=== PATIENT | male | born 1960 | race Two or more races ===

== ENCOUNTER 2016-11-08 07:57 | Emergency (ER) | payer OTHER ==
[2016-11-08 08:21] VITALS: BP 149/83
[2016-11-08] MEDS ORDERED: Ketorolac INJ* 60 MG/2 ML VIAL IM ONE (08:41)
--- NOTE | 2016-11-08 09:09 | RAD ---
HISTORY: Anterior right shoulder pain COMPARISONS: None VIEWS: 3, Frontal internal rotation, external rotation, and outlet views of the right shoulder FINDINGS: BONE DENSITY: Normal. BONES: There is no displaced fracture. JOINTS: There is no arthropathy. ALIGNMENT: There is no dislocation. SOFT TISSUES: Unremarkable. OTHER FINDINGS: None. IMPRESSION: NO ACUTE OSSEOUS INJURY. IF SYMPTOMS PERSIST, RECOMMEND REPEAT IMAGING.
[2016-11-08] MEDS ORDERED: HYDROcodone/ACETAMIN 5-325 MG* 1 TAB PO ONE (09:44)
--- NOTE | 2016-11-08 10:04 | UC ---
Eleanor Sales Rebecca, scribed for Jeanne Patten MD on 11/08/16 at 0839 . Upper Extremity HPI - HPI Summary HPI Summary: Pt is a 56 y/o M accompanied by his who presents to [facility] c/o R shoulder pain with decreased ROM. Pain began suddenly 5 days ago and has been constant since onset, significantly worsening yesterday at 1000. Pain is discrete to the R shoulder without radiation. Pain is currently severe, ranked 9/10 and characterized as sharp. Sx aggravated by movement, alleviated by nothing and unchanged by pain patch, deep breaths, Ibuprofen, Advil (yesterday at 1600) and Hydrocodone (yesterday at 2200). Additionally c/o R hand swelling. Denies any CP. Denies any recent trauma. PMHx CAD, HTN, MA. STEMI 5 years ago while playing basketball with sx of CP. Evaluated by Dr. Massey 10 days ago. - History of Current Complaint Chief Complaint: UCUpperExtremity Stated Complaint: SHOULDER PAIN Time Seen by Provider: 11/08/16 08:24 Hx Obtained From: Patient Onset/Duration: Sudden Onset, Lasting Days - 5 days, Worse Since - yesterday Severity Initially: Mild Severity Currently: Severe Pain Intensity: 9 Pain Scale Used: 0-10 Numeric Location Of Pain: Is Discrete @ - R shoulder Character: Sharp Aggravating Factor(s): Movement Alleviating Factor(s): Nothing Associated Signs And Symptoms: Positive: Swelling - R hand Related History: Immobility - Risk Factors Non-Orthopedic Risk Factor: Negative DVT Risk Factors: Negative Septic Arthritis Risk Factor: Negative - Allergies/Home Medications Allergies/Adverse Reactions: Allergies Allergy/AdvReac Type Severity Reaction Status Date / Time No Known Allergies Allergy Verified 11/08/16 08:11 Home Medications: Home Medications Ibuprofen TAB* [Advil TAB*] 2 odt PO BID PRN 11/08/16 [History Confirmed ] PMH/Surg Hx/FS Hx/Imm Hx Endocrine History Of: Denies: Diabetes, Thyroid Disease Cardiovascular History Of: Reports: Cardiac Disorders - 2 STENTS IN HEART; HEART ATTACK 2010, Hypertension - on medication, Myocardial Infarction Denies: Pacemaker/ICD Other History Of: Anticoagulant Therapy - Surgical History Surgical History: Yes Surgery Procedure, Year, and Place: CARDIAC STENT - 2010- [facility] - CONDTIONAL FOR 1.5T ONLY. csp;fusion/back surgeryx3; neck - Family History Known Family History: Positive: Cardiac Disease - diffuse - Social History Occupation: Employed Full-time Alcohol Use: None Substance Use Type: None Smoking Status (MU): Former Smoker Amount Used/How Often: 3 cigs daily - Immunization History Most Recent Influenza Vaccination: none Most Recent Tetanus Shot: no recall Most Recent Pneumonia Vaccination: none Review of Systems Constitutional: Negative Respiratory: Negative Cardiovascular: Chest Pain - Negative Musculoskeletal: Decreased ROM, Other: - R shoulder pain, R hand swelling All Other Systems Reviewed And Are Negative: Yes Physical Exam Triage Information Reviewed: Yes Appearance: Well-Appearing, Well-Nourished, Pain Distress - moderate Vital Signs: Initial Vital Signs Temp 98.7 F 11/08/16 08:14 Pulse 68 11/08/16 08:14 Resp 18 11/08/16 08:14 BP 149/83 11/08/16 08:14 Pulse Ox 98 11/08/16 08:14 Vital Signs Reviewed: Yes Eyes: Positive: Conjunctiva Clear ENT: Positive: Normal ENT inspection Neck: Positive: Supple, Nontender, No Lymphadenopathy Respiratory: Positive: Lungs clear, Normal breath sounds, No respiratory distress Cardiovascular: Positive: RRR, No Murmur, Pulses Normal, Brisk Capillary Refill Musculoskeletal: Positive: ROM Limited @ - Can only abduct the R shoulder about 30 degrees with serious pain, Edema @ - right hand Neurological: Positive: Alert, Muscle Tone Normal Psychological Exam: Normal Skin Exam: Normal Diagnostics - Radiology Shoulder XR Xray Interpretation: No Acute Changes - NO ACUTE OSSEOUS INJURY. IF SYMPTOMS PERSIST, RECOMMEND REPEAT IMAGING. Radiology Interpretation Completed By: Radiologist - EKG Cardiac Rate: NL - 61 bpm Cardiac Rhythm: Sinus: Normal - Normal Av-IV conduction time, AXis is 2, Q- waves in V1 and V2, NO STEMI ST Segment: Non-Specific - Non-specific ST-T-wave changes; Compared with 01/06/15 : minor ST wave changes in aVL, V5 and V6. Re-Evaluation - Re-Evaluation First Eval Re-Evaluation Time: 09:42 Change: Improved Comment: Pt reports sx have slightly improved to 6/10 from Toradol. Discussed XR results with pt. Counseled pt on how to use a sling and that pt should continue to use his shoulder. Discussed the option of a Lidocaine patch, which pt refused. Pt agrees to proper hydrocodone use to treat the pain. Discussed referral to orthopedist with pt and his . understands verbal directions on treating pain prophylactically to prevent pain ballooning again. Agrees to physical therapy prescription and work release. Upper Extremity Course/Dx - Course Course Of Treatment: With shoulder pain in a pt with heart disease, did do an EKG, but EKG is essentially unchanged and pt has no chest pain. Also pt's MA had chest pain and left shoulder pain, not right, and pt just saw Dr. Massey and all was well. Also pt's right shoulder has point tenderness and decreased ROM, all consistent with primary shoulder pain, not referred pain, occult angina. Pt is speaking Khmer to me, is translating some words in Farsi to pt. Declined an sign language interpreter. Shoulder XR reveals negative results. - Differential Dx/Diagnosis Differential Diagnosis/HQI/PQRI: Strain, Sprain, Other - calcific tendinitis Provider Diagnoses: adhesive capsulitis Discharge - Discharge Plan Condition: Stable Disposition: HOME Prescriptions: HYDROcodone/ACETAMIN 5-325 MG* [[place] 5-325 TAB*] 2 tab PO Q4H PRN #20 tab MDD 8 PRN Reason: Pain Patient Education Materials: Adhesive Capsulitis (ED) Forms: *Work Release Referrals: Claudia Gaffney MD [Primary Care Provider] - The documentation as recorded by the Eleanor lutz Rebecca accurately reflects the service I personally performed and the decisions made by me, Jeanne Patten MD.
== END 2016-11-08 10:04 | disposition home or self-care (01) ==
LOC: UCEAST 07:57
DX: M75.01 Adhesive capsulitis of right shoulder (principal); I25.2 Old myocardial infarction; I10 Essential (primary) hypertension; Z79.01 Long term (current) use of anticoagulants; Z72.0 Tobacco use
CPT/HCPCS: 93005; 96372; 99213; G0463; J1885

== ENCOUNTER 2017-09-07 14:47 | Emergency (ER) | payer OTHER ==
[2017-09-07] MEDS ORDERED: Ibuprofen TAB* 600 MG PO ONE (15:08)
[2017-09-07] MEDS ORDERED: Acetaminophen TAB* 325 MG PO ONE (15:09)
[2017-09-07] MEDS ORDERED: Ondansetron ODT TAB* 4 MG PO ONE (15:10)
--- NOTE | 2017-09-07 16:50 | UC ---
Nubia Sales Nilda, scribed for Pierce Shea MD on 09/07/17 at 1510 . Respiratory Complaint HPI - HPI Summary HPI Summary: This patient is a 57 year old M presenting to [facility] accompanied by with a chief complaint of sudden onset constant fever since yesterday afternoon. Patient reports chills (shaking), nausea, body aches, cough, rhinorrhea, nasal congestion, chest congestion, headache, and eye pain. Patient denies vomiting. Pain is rated 8/10 in severity. 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 PMHx includes HLD, CAD, and HTN. Medications include metroprolol, NTG, Norvasc, and Hydrocodone. - History of Current Complaint Stated Complaint: COUGH Time Seen by Provider: 09/07/17 15:01 Hx Obtained From: Patient Onset/Duration: Sudden Onset, Lasting Days - 1 day, Still Present Timing: Constant Severity Currently: Severe Pain Intensity: 8 Pain Scale Used: 0-10 Numeric Character: Cough: Nonproductive Aggravating Factors: Nothing Alleviating Factors: OTC Meds - ibuprofen Associated Signs And Symptoms: Positive: Fever, Chills, Nasal Congestion, Sinus Discomfort - Allergies/Home Medications Allergies/Adverse Reactions: Allergies Allergy/AdvReac Type Severity Reaction Status Date / Time No Known Allergies Allergy Verified 09/07/17 15:04 PMH/Surg Hx/FS Hx/Imm Hx Cardiovascular History: Hypertension, Other Other Cardiovascular History: hyperlypidemia Other History Of: Anticoagulant Therapy - Surgical History Surgical History: Yes Surgery Procedure, Year, and Place: CARDIAC STENT - 2010- [facility] - CONDTIONAL FOR 1.5T ONLY. csp;fusion/back surgeryx3; neck - Family History Known Family History: Positive: Cardiac Disease - diffuse Negative: Diabetes - Social History Lives: With Family Alcohol Use: None Substance Use Type: None Smoking Status (MU): Light Every Day Tobacco Smoker Type: Cigarettes Amount Used/How Often: 2-3 sig/day When Did the Patient Quit Smoking/Using Tobacco: 2013 - Immunization History Most Recent Influenza Vaccination: none Most Recent Tetanus Shot: no recall Most Recent Pneumonia Vaccination: none Review of Systems Constitutional: Fever, Chills - shaking Eyes: Other - eye pain ENT: Nasal Discharge, Sinus Congestion Respiratory: Cough Cardiovascular: Other - chest congestion Gastrointestinal: Nausea, Other - negative vomiting Musculoskeletal: Other: - body aches Neurological: Headache All Other Systems Reviewed And Are Negative: Yes Physical Exam Triage Information Reviewed: Yes Vital Signs: Initial Vital Signs Temp 100.6 F 09/07/17 15:01 Pulse 88 09/07/17 15:01 Resp 16 09/07/17 15:01 BP 145/98 09/07/17 15:01 Pulse Ox 96 09/07/17 15:01 - Additional Comments General: moderately ill-appearing, no pain distress Skin: warm, color reflects adequate perfusion, dry Head: normal Eyes: EOMI, COLLIN ENT: positive clear nasal discharge, posterior pharynx positive mild erythema, TMs normal Neck: supple, nontender Respiratory: CTA, breath sounds present Cardiovascular: RRR Abdomen: soft, nontender Bowel: present Musculoskeletal: normal, strength/ROM intact Neurological: normal, sensory/motor intact, A&O x3 Psychological: affect/mood appropriate Diagnostic Evaluation - Laboratory O2 Sat by Pulse Oximetry: 96 Re-Evaluation - Re-Evaluation First Eval Re-Evaluation Time: 16:45 Comment: Reviewed labs with patient. Respiratory Course/Dx - Course Course Of Treatment: BP noted and advised to follow up with PCP. Allergies noted. Medications reviewed. - Differential Dx/Diagnosis Provider Diagnoses: INFLUENZA. uncontrolled hypertension Discharge - Discharge Plan Condition: Stable Disposition: HOME Prescriptions: Ibuprofen TAB* [Motrin TAB* 600 MG] 600 mg PO Q6H PRN #30 tab PRN Reason: Fever Ondansetron ODT TAB* [Zofran 4 MG Odt TAB*] 4 mg PO Q6H PRN #15 tab.odt PRN Reason: Nausea Oseltamivir CAP* [Tamiflu CAP*] 75 mg PO BID #10 cap Patient Education Materials: Influenza (ED) Referrals: Claudia Gaffney MD [Primary Care Provider] - Additional Instructions: FOLLOW UP WITH YOUR DOCTOR. RETURN TO THE EMERGENCY DEPARTMENT FOR ANY WORSENING OF YOUR CONDITION OR QUESTIONS OR CONCERNS. Your blood pressure was elevated during todays visit; please follow up with your primary care provider within a week for further evaluation. The documentation as recorded by the Nubia lutz Nilda accurately reflects the service I personally performed and the decisions made by me, Pierce Shea MD.
[2017-09-07 16:54] VITALS: BP 147/83
== END 2017-09-07 17:05 | disposition home or self-care (01) ==
LOC: UCEAST 14:47
DX: J11.1 Influenza due to unidentified influenza virus with other respiratory manifestations (principal); I10 Essential (primary) hypertension; I25.10 Atherosclerotic heart disease of native coronary artery without angina pectoris; Z72.0 Tobacco use; E78.5 Hyperlipidemia, unspecified
CPT/HCPCS: 87502; 99212; A9270-GY; G0463